=== PATIENT | female | born 1945 | race Caucasian/White ===

== ENCOUNTER → 2020-11-18 09:25 | Outpatient (CLI) | payer OTHER, SELFPAY ==
[2020-11-18 11:39] LABS: COVID19 -Nasal RAPID Negative (Negative)
== END ==
PROVIDERS: Visit Provider Physician Assistant
DX: Z20.822 Contact with and (suspected) exposure to COVID-19 (principal)
CPT/HCPCS: 87635; C9803

== ENCOUNTER 2020-11-20 09:13 | Day surgery (SDC) | payer OTHER, SELFPAY ==
[2020-11-20] VITALS (19 sets, daily range): BP systolic 111–159; BP diastolic 42–93; PULSE 61–72; RESP 8–18; TEMP 36.2–36.9; O2SAT 88–100; BMI 23.8
--- NOTE | 2020-11-20 | DI.RAD.S_ITS ---
PROCEDURE: XR KNEE RT 1TO2V INDICATIONS: TOTAL RIGHT KNEE TECHNIQUE: 2 view(s) of the knee acquired. COMPARISON: None. FINDINGS: Bones: Patient is status post knee joint arthroplasty. Hardware components are in expected positions. Visualized bony structures are intact. Soft tissues: Overlying postoperative changes are noted. IMPRESSION: Right total knee arthroplasty. Dictated by: Marek Valenzuela M.D. on 11/20/2020 at 15:34 Approved by: Marek Valenzuela M.D. on 11/20/2020 at 15:34
[2020-11-20] MEDS: ACETAMINOPHEN 325 MG TABLET 975 MG PO (09:54)
[2020-11-20] MEDS: CELECOXIB 200 MG CAPSULE PO (09:54)
[2020-11-20] MEDS: LACTATED RINGERS 1,000 ML 42 ML IV ×2 (09:54→13:25)
[2020-11-20] MEDS: PREGABALIN 75 MG CAPSULE PO (09:54)
--- NOTE | 2020-11-20 10:57 | PM.PREOP ---
Pre-operative Note COVID-19 COVID-19 status: Negative Result date/Date tested (Pos, Neg/Pending): 11/18/20 Interval Note History & Physical reviewed/Exam performed by Physician: Yes Changes to H&P: No H&P completed within 30 days and has changed as indicated here:: Plan for R TKA
[2020-11-20] MEDS: CEFAZOLIN 2 GM/100 ML FROZ.PIGGY IV ×2 (11:51→20:15)
[2020-11-20] MEDS: TRANEXAMIC ACID 1,000 MG VIAL 1000 MG INJ ×2 (12:10→13:29)
--- NOTE | 2020-11-20 12:24 | SUR.OPER ---
Supine on padded OR bed. Pillow under head, arms secured on padded armboards <90 degree abduction. Safety belt across torso. Non-operative leg secured with tape over blanket over lower leg. Operative leg secured on bar positioner. Foam padded brace at thigh of operative leg.
[2020-11-20] MEDS: ROPIVACAINE 0.5% PF 5 MG/ML 20ML VIAL 60 ML INJ (12:33)
[2020-11-20] MEDS: KETOROLAC 30 MG/ML VIAL IV (12:34)
[2020-11-20] MEDS: MORPHINE 4 MG/ML INJ INJ (12:34)
[2020-11-20] MEDS: SODIUM CHLORIDE IRRIG SOLUTION 250 ML, POVIDONE-IODINE SPONGE STICKS 1 APPLIC IRR (12:35)
--- NOTE | 2020-11-20 13:39 | PM.OP.1 ---
Operative Date/Time/Diagnoses Date of procedure: 11/20/20 Time of procedure: 13:39 Pre-op diagnosis: right knee OA Post-op diagnosis: same Procedure & Clinicians Procedure: Right total knee arthroplasty Same procedure as scheduled: Yes Indications: Right knee osteoarthritis resistant to further conservative measures Surgeon: Xu Castro Freight Manager: Marek Arrington Anesthesia Type: General and Spinal Operative Notes Findings: Right knee osteoarthritis with osteoarthritic changes seen in the medial femoral and patellofemoral compartments. Patellofemoral compartment was most severe with [id number] eburnation. Patella is too thin to resurface. Closure Type: primary Prosthetic devices, grafts, tissues, transplants, or devices: Garcia and nephew Journey 2 size 6 right CR femur Journey tibial base plate size 5 right Size 5-6 right 9 mm journey 2 polyethylene Estimated Blood Loss (mL): 200 Tourniquet time (min): 49 Procedure in detail: Patient was met in the preoperative holding area. Informed consent had been signed in clinic but was also reviewed the preoperative holding area and all questions were answered. The surgical site was marked by . Patient was then brought back in the operating room where she received a spinal anesthetic. She then placed supine on the operating room table. A nonsterile tourniquet was placed on the right thigh the right lower extremity was prepped and draped in normal sterile fashion. Surgical time-out performed verifying the site and side of surgery as well as the name of the patient. The the right lower extremity was exsanguinated using an Esmarch and the tourniquet was inflated to 250 mm of mercury. A longitudinal incision over the right knee was made in the skin using 10. Blade. Medial and lateral flaps were then elevated in the medial parapatellar arthrotomy was marked out and in medial parapatellar arthrotomy was performed the new 10. Blade. A medial peel was then performed as well as removal of the Hoffa's fat pad and removed with the lateral meniscus. ACL was then removed at this point and Serena's line was then marked. The entry site for the drill was marked 1 cm proximal to the PCL footprint as well as at the ACL footprint for the tibia. The drill was then used into the femoral canal and the tibial canals respectively. The intramedullary guide for the femoral cutting jig was then placed for a right-sided distal femoral cut we initially made a neutral cut however this was not a large enough cut and 2 more mm were taken. Intramedullary veronica was then placed inside the tibia the cutting jig was then placed and provisionally pinned into place. A drop veronica was then used to verify the varus valgus alignment of the cutting block and a 3rd pin was then placed to hold this in place. Initial cut again was found to be to conservative and 4 more mm of tibia were then cut. The medial meniscus was then removed. The knee was then brought into full extension and a 9 mm extension block was placed with the knee in full extension. The pins were then removed. The knee was brought into flexion and the gap maintenance equipment operator was used to el femoral rotation this was compared to Whitesides line. A femoral Sizer was then used and sized the femur to a size 6. External rotation of the component is about 5?. The 5 in 1 distal femoral cutting block was then placed and pinned into place. The cuts were then made. The cutting jig was removed and a trial 6. Femur was placed and excess osteophytes medially and laterally were removed. A size 5 tibial base plate with a 9 mm CR polyethylene was then placed in the knee was trialed knee was stable to varus valgus stress at full extension through mid flexion flexion range of motion with excellent range of motion. This point we turned our attention to the patella. The patella at its thickest point was measured at 17 mm thick as Sebastián point approximately 8 mm thick the portion of the patella the constituted 17 mm thickness was a very small area and the majority of the patella was quite a bit thinner than this. I did not resurface the patella at the think that she would be at significant risk for extensor mechanism disruption if this would be resurfaced due to the thickness of the patella. Electrocautery was used to for the soft tissue about the patella. The patella want to sublux a little bit laterally although was still tracking within the trochlea through range of motion a lateral release was then performed. This improved tracking. The trial components were then removed after marking tibial rotation using a floating technique. Tibial tray was then placed and reamed and punched. Local anesthetic was infiltrated into the posterior aspect of the knee as well as the periarticular soft tissues. Pulse lavage was used to clean the cut surface of the of the bone and then suction was used to dry the surfaces. Cement was then prepped and cement was then finger packed on the cut surface of the tibia as well as into the keel. It was placed on the undersurface of the tibial tray this tibial tray was then malleted into place and excess cement was removed. Cement was then finger packed on the cut surface of the femur with exception of the posterior condylar cut. Cement was placed on the feet of the femoral component and this was then malleted into place as well and excess cement was removed. A size 9 CR trial polyethylene was then placed in the knee was brought into full extension and the ankle was held in internal rotation while the cement fully cured. Betadine solution was then placed in the wound allowed to sit for several minutes prior to being pulse lavage away with copious normal saline. The tourniquet was let down at 49 minutes set time. Hemostasis was achieved using electrocautery. Once the cement was fully cured the knee was brought through range of motion again and a size 5-6 right deep dish polyethylene was selected. Trial was removed and the posterior aspect of the knee was lavaged again looking for any bony fragments of which none were found. The polyethylene was then snapped into the tibial tray make sure that the medial and lateral tabs were well seated. The medial parapatellar arthrotomy was then closed with Vicryl in interrupted fashion followed by a running Quill suture. The subcutaneous layer was then closed with 2 Vicryl interrupted fashion followed by 3-0 Stratafix in the subcuticular layer followed by Dermabond and Aquacel dressing. Complications: none Post-operative Condition: stable Disposition: PACU Plan for aftercare: 24 hours post-op abx, WBAT RLE, ASA 81mg BID for 6 weeks for DVT prophyalxis
[2020-11-20] MEDS: OXYCODONE IR 5 MG TABLET PO ×3 (14:25→18:03)
[2020-11-20] MEDS: ONDANSETRON 4 MG/2 ML INJ IV (14:25)
[2020-11-20] MEDS: ACETAMINOPHEN 325 MG TABLET 650 MG PO ×2 (16:39→21:37)
[2020-11-20] MEDS: LACTATED RINGERS 1,000 ML 100 ML IV (16:40)
--- NOTE | 2020-11-20 17:45 | PC.NURSE ---
Addendum entered by Josee Au R.N. 11/20/20 22:50: Denies feeling urge to void. Bladder scanned for > 600 cc's. Assisted pt to commode to attempt void and pt incontinent of urine with movement. Incontinent and continent of urine. Brief placed and linen changed on bed. Pt able to transfer from commode to bed without any c/o dizziness or lightheadedness. BL calf scd's replaced upon return to bed. Oxygen replaced for sleep. Miralax per request for bowel function. No change in neurovascular status this evening shift. Addendum entered by Josee Au R.N. 11/20/20 19:08: Soundly sleeping in bed. 02 2L nc sats 100%. Pt has been instructed in I.S. prior to sleep and provides return demonstration with good technique. When pt lying on back, noted to desaturate with sleep with mouth breathing to 88% while on 2L oxygen per NC. Original Note: Pt mostly sleeping in bed @ beginning of shift. Noted saturation level with sleep decreases to upper 70's. Pt rouses easily to voice and oxygen @ 2L per nc placed and oxygen level increases to 94%. Pt fully awake for evening meal. Denies nausea. Rates right knee pain 5/10 and was given tylenol and encouraged to alert staff if needing/desiring stronger analgesia. Pt verbalizes understanding and agreement. Ice to right knee. Dr. Castro in to see patient. BL calf scd's in place. Pt admits to full sensation to BL LE's. Milo wrap to right knee dry and intact and RLE supported on pillow x 1. Oriented to call light.
[2020-11-20] MEDS: DOCUSATE 100 MG CAPSULE PO (21:37)
[2020-11-20] MEDS: ASPIRIN EC 81 MG TABLET PO (21:37)
[2020-11-20] MEDS: polyethylene glycoL 3350 17 GM POWD.PACK PO (22:11)
[2020-11-21 00:20] VITALS: BP 141/78; PULSE 74; RESP 16; TEMP 36.8; O2SAT 99
[2020-11-21] MEDS: OXYCODONE IR 5 MG TABLET PO ×3 (02:54→08:45)
[2020-11-21] MEDS: LACTATED RINGERS 1,000 ML 100 ML IV (03:00)
[2020-11-21] MEDS: CEFAZOLIN 2 GM/100 ML FROZ.PIGGY IV (03:27)
[2020-11-21 04:56] LABS: Hemoglobin 11.1 g/dL (12.0-16.0)
[2020-11-21 05:00] VITALS: BP 143/77; PULSE 74; RESP 16; TEMP 36.6; O2SAT 98
[2020-11-21] MEDS: SODIUM CHLORIDE 0.9% FLUSH 10 ML IV ×2 (06:59→08:59)
--- NOTE | 2020-11-21 07:34 | P.PN_ITS ---
Subjective Subjective Date Patient Seen: 11/21/20 Time Patient Seen: 07:34 Interval history: Patient is in bed resting comfortably. She states that her pain is well managed with her current pain management regimen. The patient notes that she has had mild discomfort getting out of bed to use the restroom but explains that the pain is alleviated with rest. Patient is voiding well and denies nausea, chest pain, shortness of breath, chills, or pain below the knees bilaterally. She notes that she has yet to work with PT this morning. The patient notes that she has all of her prescribed medications ready at home. A follow up appointment at [facility] is set for two weeks from the date of surgery 11/20/20. Exam Vital Signs (past 8 hours): - 11/21/20 00:20 11/21/20 05:00 Temperature 98.2 F 97.8 F Pulse Rate 74 74 Respiratory Rate 16 16 Blood Pressure 141/78 H 143/77 H Pulse Oximetry 99 98 Oxygen Delivery Method Nasal Cannula Oxygen Flow Rate 0 Narrative Exam Narrative: Patient is resting comfortably in bed and is in no acute distress. VSS. Patient has sensation throughout the distal bilateral lower extremities with a capillary refill of < 2 seconds. Ankle dorsifelxion, plantar flexion, inversion, and eversion are performed without discomfort. Patient lifts the bilateral lower extremities from the bed with mild discomfort. Homans sign negative. No swelling, erythema, or discharge noted from the incision or bandage on the right LE. Const General: cooperative, healthy appearing, comfortable and well developed Orientation: alert, awake and oriented x3 HENMT Head: normal to inspection Resp Effort & Inspection: normal respiratory effort and able to speak in complete sentences Extrem General: normal exam except as noted Objective Labs Result Diagrams: 11/21/20 04:45 Labs: Laboratory Results - last 24 hr 11/21/20 04:45 Hgb 11.1 L Hct 33.0 L PFSH Medical History Arthritis Cancer of skin DJD (degenerative joint disease) Fracture Knee pain Primary osteoarthritis of right knee Social History household members: spouse Smoking Status: Former smoker alcohol intake: current Assessment & Plan Post-op Postoperative Procedures: Procedures Operation Date: 11/20/20 10:45 Actual Procedures Side Surgeon p Total Knee Arthroplasty Right Xu Castro MD Postoperative day: 1 Postoperative status: doing well Postoperative status narrative: Patient is doing well and awaiting work with PT. She notes that she has 8 total stairs in her home and would feel most comfortable ascending and descending stairs prior to discharge. Postoperative plan narrative: Patient is scheduled to attend PT at the [facility] facility. A two week post-op follow up is set at [facility]. The patient is instructed to not saturate or remove the bandage from the right LE and is to contact the office if the bandage is removed or soiled before follow-up. The patient has her prescribed medications at home and is aware that she will need to take Aspirin 81mg BID for two weeks, Tylenol, Ibuprofen, and Ox ycodone PRN. The patient is to be weight bearing as tolerated. Patient has yet to work with PT, but is clear for discharge after a successful session with PT. Quality VTE Deep Vein Thrombosis/Pulmonary Embolism Present on Admission: No
[2020-11-21] MEDS: DOCUSATE 100 MG CAPSULE PO (08:11)
[2020-11-21] MEDS: ACETAMINOPHEN 325 MG TABLET 650 MG PO ×2 (08:12→14:35)
[2020-11-21] MEDS: ASPIRIN EC 81 MG TABLET PO (08:12)
--- NOTE | 2020-11-21 09:53 | PT.IIE ---
Current Diagnoses Unilateral primary osteoarthritis, right knee (11/20/20) Surgery Performed Operation Date: 11/20/20 10:45 Actual Procedures p Total Knee Arthroplasty(Right) - Xu Castro MD Medical History (Last Reviewed 11/21/20 @ 12:10 by Sagar Ram PA-C) Arthritis Cancer of skin DJD (degenerative joint disease) Fracture Knee pain Primary osteoarthritis of right knee Physical Therapy Inpatient Evaluation/Re-Eval M1 PT/OT-IP Prior Functional Status Start: 11/21/20 12:00 Freq: NEEDED Status: Active Protocol: Document 11/21/20 09:53 AB (Rec: 11/21/20 12:13 AB [id number]) Medical Review Prior Functional Status Medical History Reviewed Yes Communication able to make needs known Mobility and Gait pt stated that she is independent with all mobilities and ambulation without AD Social History Household Members spouse Living Arrangements House Number of Floors (Floors) 3 or More Floors Number of Stairs To Enter/Railing? pt will stay on main level of the house has 8 steps with L rail descending to enter the house Home Environment High Toilet,Walk in Shower, Built-In Shower Seat Home Equipment Front Wheel Walker,Four Wheel Walker,Hand Held Shower,Grab Bars In Shower Employment Status Retired M2 PT-IP Current Condition Start: 11/21/20 12:00 Freq: NEEDED Status: Active Protocol: Document 11/21/20 09:53 AB (Rec: 11/21/20 12:13 AB [id number]) Physical Therapy Current Condition Current Condition Evaluation Date 11/21/20 Treatment Diagnosis s/p R TKA; difficulty in walking Onset Date 11/20/20 Weight Bearing Status Weight Bearing Status Weight Bear as Tolerated Allowed Weight Bearing Amount (enter % RLE WBAT or #) (%) M3 PT-IP Subjective Start: 11/21/20 12:00 Freq: NEEDED Status: Active Protocol: Document 11/21/20 09:53 AB (Rec: 11/21/20 12:13 AB [id number]) Subjective Physical Therapy Visit Type Type Initial Evaluation Visit Start Time 09:53 Visit Stop Time 11:25 Total Visit Minutes 72 Number of REVENUE DIRECTOR Visits 0 Physical Therapy Visit Comments Patient Comments pt is agreeable to do PT Therapy Pain Assessment Pain When Pain Assessed At Rest Pain Present Pain Present Pain Reported Location Right Knee Intensity 1 Scale Used increases to 8/10 with mobility Pain Management Techniques Apply Cold,Distraction, Modification of Treatment,Re- positioning,Timing of Activity with Medications M4 PT-IP Mobility and Gait Start: 11/21/20 12:00 Freq: NEEDED Status: Active Protocol: Document 11/21/20 09:53 AB (Rec: 11/21/20 12:13 AB [id number]) PT-Bed Mobility Assessment Supine to Sit Supine to Sit Standby Assistance Sit to Supine Sit to Supine Standby Assistance PT-Transfer Assessment Sit to and From Stand Sit to and from Stand Standby Assistance,Contact Guard Assistance,1 Person Assistance Equipment Transfer Assistive Device Front Wheeled Walker Orthotic/Prosthetic Devices or Brace: No Transfers Transfer Destination Chair,Toilet Transfer Technique ambulated using FWW Transfer Ability Level of Assist Standby Assistance,Contact Guard Assistance,1 Person Assistance,Use of Upper Extremities Comments Mobility Comments pt completed supine to sit X 2 sets SBA and cues for techniques. pt was able to sit on EOB SBA. requested to use the toilet. completed sit to stand CGA and cues. ambulated to the toilet using FWW CGA. completed sit to stand from the toilet using grab bar SBA. ambulated to the chair using FWW SBA to CGA . pt agreed to do stairs. completed sit to stand from the chair SBA and ambulated using FWW ~ 100 ft SBA to CGA. educated pt on stair climbing. completed up/down steps holding on R rail with B hands requiring min A and cues. pt c/o 8/10 pain and nausea. pt assisted back to her room. ambulated from w/c to chair SBA using FWW. positioned on chair. call light and table placed within reach. setup caregiver training and spouse will be coming ~ 1230 pm today for training. informed nurse and PA regarding pt's pain and mobiltiy. Gait Assessment Gait Gait Assistance Required: Standby Assistance,Contact Guard Assist Distance (Feet) 100 Able to Maintain Weight Bearing Status Yes During Gait Assistive Devices Assistive Device Gait Belt,Front Wheeled Walker Orthotic/Prosthetic Devices or Brace: No Gait Deviations General Gait Pattern Antalgic,Decreased Stride Length,Decreased Feet Clearance,Step-to Gait Factors Limiting Gait Function Factors Limiting Gait Function Decreased Activity Tolerance, Decreased Strength,Limited Range of Motion,Pain,Poor Balance,Poor Safety Awareness Comments Gait Comments pls refer to mobility section for details Stair Climbing Assessment Evaluation Level of Assist On Stairs Minimal Assistance Devices Stair Climbing Assistive Devices Right Railing Technique/Endurance Stair Climbing Direction Ascend and Descend Stair Climbing Technique Step to Step Number of Steps Climbed 3 Query Text: Stair Climbing Set # Repetitions (reps) 1 Comments Stair Climbing Comments pls refer to mobility section for details PT-Balance Assessment Sitting Balance and Reactions Static Sitting Balance Ability Good Dynamic Sitting Balance Ability Good Standing Balance and Reactions Static Standing Balance Ability Fair Dynamic Standing Balance Ability Fair Device Used FWW M5 PT-IP Objective Assessments Start: 11/21/20 12:00 Freq: NEEDED Status: Active Protocol: Document 11/21/20 09:53 AB (Rec: 11/21/20 12:13 AB [id number]) Orientation Orientation/Cognition Level of Alertness Alert Orientation Name,Place,Situation Language Function Ability No Deficits Noted Safety Awareness Understands Safety Issues Memory Description No Deficits Noted Gross Range of Motion Lower Extremity ROM Assessment Right Impaired Impairments R knee flexion PROM: ~ 70 deg; extension with 15 deg lacking to neutral Strength Lower Extremity Strength Assessment Right Impaired Hip 4-/5 Knee 3+/5 Coordination Assessment Gross Coordination Gross Coordination WNL Muscle Tone Muscle Tone WNL Yes M6 PT-IP Treatment Start: 11/21/20 12:00 Freq: NEEDED Status: Active Protocol: Document 11/21/20 09:53 AB (Rec: 11/21/20 12:13 AB [id number]) Physical Therapy Treatment Exercises Exercises Ankle Pumps,Quad Sets,Heel Slides Education Education Provided Precautions,Weight Bearing Status,Post-Op Packet,Safety Other Treatments Other Treatment Performed completed heel slides, quads sets and ankle pumps reviewed HEP M7 PT-IP Assessment and Plan Start: 11/21/20 12:00 Freq: NEEDED Status: Active Protocol: Document 11/21/20 09:53 AB (Rec: 11/21/20 12:13 AB [email or web address]) PT Summary Assessment and Plan Potential Rehabilitation Potential Good Status of Condition at Evaluation Stable Summary Impairments Pain,ROM,Strength,Balance, Coordination,Bed Mobility, Transfers,Gait,Activity Tolerance Assessment Summary pt requiring SBA to CGA with ambulation using FWW and min A with stair climbing. Spouse will be coming in this afternoon ~ 1230 pm for caregiver training. will continue to assess progress. pt plans to go home after caregiver training. Goals Bed Mobility Goal Independent Transfer Goal Independent,Front Wheeled Walker Gait Goal Independent,Front Wheel Walker Gait Distance 150 Other Goals up/down 8 steps R rail ascending SBA Days to Meet Goals 5 Frequency of Treatment Frequency Of Treatment Twice a Day Treatment Plan Physical Therapy Treatment Plan Bed Mobility Training,Transfer Training,Gait Training, Therapeutic Exercise,Balance Retraining,Post Op Education, Discharge Planning,Hot or Cold Pack,Neuromuscular Re-ed, Coordination Retraining,Manual Therapy Precautions Other Precautions RLE WBAT Recommendations To Nursing Amount of Assist Needed 1 Person Assist Discharge Recommendations PT Discharge Recommendations Home with Assistance, Outpatient PT Transportation Needs at Discharge Private Vehicle
[2020-11-21 10:38] VITALS: BP 127/72; PULSE 69; RESP 19; TEMP 36.7; O2SAT 96
--- NOTE | 2020-11-21 10:55 | PM.PNPO.1 ---
Subjective Subjective Date Patient Seen: 11/21/20 Time Patient Seen: 11:01 Interval history: Patient states she is doing well. Pain is managed with her current pain management regimen. Patient states she is feeling fine ambulating well with her walker during PT. She notes that she has yet to work on ascending and descending stairs with PT. Exam Vital Signs (past 8 hours): - 11/21/20 05:00 Temperature 97.8 F Pulse Rate 74 Respiratory Rate 16 Blood Pressure 143/77 H Pulse Oximetry 98 Oxygen Delivery Method Nasal Cannula Oxygen Flow Rate 0 Narrative Exam Narrative: Patient is comfortable and ambulating well with assistance of walker and PT. She is in no acute distress. Const General: cooperative, healthy appearing and comfortable Resp Effort & Inspection: normal respiratory effort and able to speak in complete sentences Objective Labs Result Diagrams: 11/21/20 04:45 Labs: Laboratory Results - last 24 hr 11/21/20 04:45 Hgb 11.1 L Hct 33.0 L PFSH Medical History Arthritis Cancer of skin DJD (degenerative joint disease) Fracture Knee pain Primary osteoarthritis of right knee Social History household members: spouse Smoking Status: Former smoker alcohol intake: current Assessment & Plan Post-op Postoperative Procedures: Procedures Operation Date: 11/20/20 10:45 Actual Procedures Side Surgeon p Total Knee Arthroplasty Right Xu Castro MD Postoperative day: 1 Postoperative status: doing well Postoperative status narrative: Patient comfortable working with PT. Postoperative plan narrative: Refer to previous note for postoperative plan. If patient successfully works with PT she feels comfortable being discharged today. Quality VTE Deep Vein Thrombosis/Pulmonary Embolism Present on Admission: No
--- NOTE | 2020-11-21 11:13 | CM.DANOTE ---
DCP: Case received, EMR reviewed and met with patient. Introduced self and role. Was able to obtain information from patient regarding her baseline activity status prior to surgery, as well as her current living situation. DCP assessment completed with information currently available. Patient is a 75 year old female who admitted yesterday morning to the care of the orthopedic team. PCP: Dr. Diego. Payer: confirmed: [employer]. Patient came to the hospital via private vehicle for a surgical procedure. She had right total knee arthroplasty. Patient had had history of osteoarthritis of her right knee. Met with patient in her room. She is alert and oriented, pleasant. She resides in [facility] with her spouse, Rasta. She is independent at her baseline. Confirmed that her will be able to assist her when she goes home. P: DCP to continue to follow. Patient should be able to go home when she is medically stable and cleared by P.T. Kanwal Macdonald RN/Roller Skate [employer]er
--- NOTE | 2020-11-21 11:51 | P.DS_ITS ---
History of Present Illness History of Present Illness Date Patient Seen: 11/21/20 Time Patient Seen: 11:52 Chief complaint: OPB Narrative: Patient admitted to the hospital following right TKA. Patient has a history of right knee OA. Following the surgery the patient worked with PT and was able to ambulate with the assistance of a walker and worked on ascending and descending stairs. The patient has had her pain managed well with her pain management regimen, and she has her prescriptions at home for Aspirin 81mg BID, Tylenol, Ibuprofen, and Oxycodone. At this time she denies chills, shortness of breath, or chest pain. The patient has been instructed to follow-up in two weeks at the clinic and continue PT at [facility]. Discharge Providers Provider Discharge Date: 11/21/20 Primary care physician: Carlene Diego MD Consults: 11/20/20 07:45 Consult to Anesthesiology Routine Comment: Consulting Provider: Anesthesiologist Reason for consultation: Regional block for post operative pain control 11/20/20 16:10 Consult to Discharge Planning Routine Comment: Consult to Physical Therapy Evaluate & Treat Comment: Physician Instructions: postop TKA protocol Consult to Respiratory Therapy Evaluate & Treat Comment: Physician Instructions: Evaluate and treat 11/20/20 16:50 Consult to Pastoral Services Routine Comment: Is Faith Discharge provider: Sagar Ram PA-C Summary Hospital Course Discharge Diagnosis: Right knee osteoarthritis Status post right TKA Hospital Course: Same as documented in HPI Exam Vital Signs (past 8 hours): - 11/21/20 05:00 11/21/20 10:38 Temperature 97.8 F 98.0 F Pulse Rate 74 69 Respiratory Rate 16 19 Blood Pressure 143/77 H 127/72 Pulse Oximetry 98 96 Oxygen Delivery Method Nasal Cannula Oxygen Flow Rate 0 Narrative Exam Narrative: Patient resting comfortably in chair in her room. Right LE is free of swelling, ecchymosis, or erythema. Patient is ambulating in the room with the assistance of her walker. Sensation is intact throughout the bilateral lower extremities, VSS, negative Homans sign. Const General: cooperative, healthy appearing and comfortable Resp Effort & Inspection: normal respiratory effort and able to speak in complete sentences Extrem General: normal exam except as noted Objective Labs Result Diagrams: 11/21/20 04:45 Labs: Laboratory Results - last 24 hr 11/21/20 04:45 Hgb 11.1 L Hct 33.0 L PFSH Medical History Arthritis Cancer of skin DJD (degenerative joint disease) Fracture Knee pain Primary osteoarthritis of right knee Social History household members: spouse Smoking Status: Former smoker alcohol intake: current Discharge Assessment & Plan Assessment and Plan Assessment: Patient is clear for discharge. Pain is managed well and the patient has her prescribed medications at home. Patient is to contact the clinic with any questions or concerns. Plan of Treatment: Patient to be weight bearing as tolerated. She is to follow-up at the clinic in two weeks for her first post-op appointment. The patient is to continue PT outside of the hospital at [facility]. The bandage covering the surgical incision is to remain intact. The bandage should not be removed or saturated. If the bandage is removed or damaged prior to the first post-op visit the patient is instructed to contact the clinic. Patient is to continue Aspirin 81mg BID for 6 weeks for DVT prophylaxis. Tylenol, Ibuprofen, and Oxycodone have been prescribed for pain management and the patient states she currently has those prescriptions at home. The patient is to contact the clinic with any further concerns or qestions. Discharge Plan Discharge Plan Patient Disposition: Home Provider Discharge Comment: Patient cleared for discharge pending PT approval. Patient is to follow-up at the clinic in two weeks. PT is to be performed outside of the hospital at [facility] Discharge orders & Medications Discharge Orders: Discharge (Order); Ordered 11/21/20 Ordered By: Sagar Ram Prescriptions: New aspirin 81 mg Tablet,Delayed Release (Dr/Ec) 81 mg PO BID 42 Days Qty: 84 RF: 0 acetaminophen 325 mg Tablet 650 mg PO TID Qty: 90 RF: 0 Continued diclofenac sodium 25 mg Tablet,Delayed Release (Dr/Ec) 25 mg PO TID RF: 0 Estring 2 mg (7.5 mcg /24 hour) Ring 1 vag ring VAGINAL [id number] RF: 0 oxycodone 5 mg tablet 5 mg PO Q4-6H PRN (Reason: Pain) RF: 0 Follow up/Referrals: Carlene Diego MD [Primary Care Provider] - Skin/Wound/Dressing Care Report to your healthcare provider any signs of infection, such as:: chills, fever, increased pain, unusual drainage and unusual redness Other wound treatment: Keep bandage on until follow-up appointment. Do not saturate bandage. If bandage is soiled, removed, or damaged contact the clinic Visit Report/Discharge Packet Instructions: DI for Knee Replacement Stand Alone Forms: Surgery Discharge Discharge Data Primary Care Provider: Carlene Diego Attending Provider: Xu Castro VTE Deep Vein Thrombosis/Pulmonary Embolism Present on Admission: No
[2020-11-21] MEDS: OXYCODONE IR 10 MG TABLET PO ×2 (11:54→14:45)
--- NOTE | 2020-11-21 12:40 | PT.IPTN ---
Current Diagnoses Unilateral primary osteoarthritis, right knee (11/20/20) Surgery Performed Operation Date: 11/20/20 10:45 Actual Procedures p Total Knee Arthroplasty(Right) - Xu Castro MD Physical Therapy Treatment Note M2 PT-IP Current Condition Start: 11/21/20 12:00 Freq: NEEDED Status: Active Protocol: Document 11/21/20 09:53 AB (Rec: 11/21/20 12:13 AB [email or web address]) Physical Therapy Current Condition Current Condition Evaluation Date 11/21/20 Treatment Diagnosis s/p R TKA; difficulty in walking Onset Date 11/20/20 Weight Bearing Status Weight Bearing Status Weight Bear as Tolerated Allowed Weight Bearing Amount (enter % RLE WBAT or #) (%) M3 PT-IP Subjective Start: 11/21/20 12:00 Freq: NEEDED Status: Active Protocol: Document 11/21/20 12:40 AB (Rec: 11/21/20 14:12 AB [email or web address]) Subjective Physical Therapy Visit Type Type Treatment Note Visit Start Time 12:40 Visit Stop Time 13:20 Total Visit Minutes 40 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 Physical Therapy Visit Comments Patient Comments pt is agreeable to do PT Therapy Pain Assessment Pain When Pain Assessed At Rest Pain Present Pain Present Pain Reported Location Right Knee Scale Used pain scale not stated Pain Management Techniques Apply Cold,Distraction, Modification of Treatment,Re- positioning,Timing of Activity with Medications M4 PT-IP Mobility and Gait Start: 11/21/20 12:00 Freq: NEEDED Status: Active Protocol: Document 11/21/20 12:40 AB (Rec: 11/21/20 14:12 AB [id number]) PT-Bed Mobility Assessment Supine to Sit Supine to Sit Standby Assistance Sit to Supine Sit to Supine Standby Assistance PT-Transfer Assessment Sit to and From Stand Sit to and from Stand Standby Assistance,Contact Guard Assistance,1 Person Assistance,Use of Upper Extremities Equipment Transfer Assistive Device Gait Belt,Front Wheeled Walker Orthotic/Prosthetic Devices or Brace: No Transfers Transfer Destination Bed Transfer Ability Level of Assist Standby Assistance,Contact Guard Assistance Comments Mobility Comments pt was just coming out from the toilet with spouse in room . pt ambulated using FWW to the sink SBA and was able to maintain standing balance SBA while completing handwashing. pt ambulated to the bed using FWW SBA. demonstrated sit<> supine on a high bed SBA. educated on techniques. caregiver training conducted. educated spouse on how to use safety belt and how to assist pt. spouse was able to assist pt with sit to stand and ambulated in the hallway using FWW 100 ft SBA to CGA. pt rested on w/c. educated spouse on how to assist pt with stair climbing. pt completed up/down steps holding on to R rail ascending with B hands and spouse assisting pt min A. spouse was able to assist pt safely. pt ambulated from w/c to bed using FWW SBA. SBA sit to supine. positioned in bed. call light and table within reach. pt and spouse without any concerns. informed nurse that pt is cleared to go home. Gait Assessment Gait Gait Assistance Required: Standby Assistance,Contact Guard Assist Distance (Feet) 100 Able to Maintain Weight Bearing Status Yes During Gait Assistive Devices Assistive Device Gait Belt,Front Wheeled Walker Orthotic/Prosthetic Devices or Brace: No Gait Deviations General Gait Pattern Antalgic,Decreased Stride Length,Decreased Feet Clearance Factors Limiting Gait Function Factors Limiting Gait Function Decreased Activity Tolerance, Decreased Strength,Limited Range of Motion,Pain,Poor Balance Stair Climbing Assessment Evaluation Level of Assist On Stairs Minimal Assistance Devices Stair Climbing Assistive Devices Right Railing Technique/Endurance Stair Climbing Direction Ascend and Descend Stair Climbing Technique Step to Step Number of Steps Climbed 3 Stair Climbing Set # Repetitions (reps) 1 M5 PT-IP Objective Assessments Start: 11/21/20 12:00 Freq: NEEDED Status: Active Protocol: Document 11/21/20 09:53 AB (Rec: 11/21/20 12:13 AB [email or web address]) Orientation Orientation/Cognition Level of Alertness Alert Orientation Name,Place,Situation Language Function Ability No Deficits Noted Safety Awareness Understands Safety Issues Memory Description No Deficits Noted Gross Range of Motion Lower Extremity ROM Assessment Right Impaired Impairments R knee flexion PROM: ~ 70 deg; extension with 15 deg lacking to neutral Strength Lower Extremity Strength Assessment Right Impaired Hip 4-/5 Knee 3+/5 Coordination Assessment Gross Coordination Gross Coordination WNL Muscle Tone Muscle Tone WNL Yes M6 PT-IP Treatment Start: 11/21/20 12:00 Freq: NEEDED Status: Active Protocol: Document 11/21/20 12:40 AB (Rec: 11/21/20 14:12 AB [email or web address]) Physical Therapy Treatment Exercises Exercises Heel Slides Education Education Provided Safety Other Treatments Other Treatment Performed educated spouse on how to assist pt with heel slides M7 PT-IP Assessment and Plan Start: 11/21/20 12:00 Freq: NEEDED Status: Active Protocol: Document 11/21/20 12:40 AB (Rec: 11/21/20 14:12 AB [id number]) PT Summary Assessment and Plan Potential Rehabilitation Potential Good Summary Impairments Pain,ROM,Strength,Balance, Cognition,Bed Mobility, Transfers,Gait,Activity Tolerance Progress Towards Goals Progressing Toward Goals Assessment Summary caregiver training conducted and spouse was able to assist pt safely. pt plans to go home later today. pt stated that she is set up for outpt PT. pt may go home when medically stable. Goals Bed Mobility Goal Independent Transfer Goal Independent,Front Wheeled Walker Gait Goal Independent,Front Wheel Walker Gait Distance 150 Other Goals up/down 8 steps R rail ascending SBA Days to Meet Goals 5 Frequency of Treatment Frequency Of Treatment Twice a Day Treatment Plan Physical Therapy Treatment Plan Bed Mobility Training,Transfer Training,Gait Training, Therapeutic Exercise,Balance Retraining,Post Op Education, Discharge Planning,Hot or Cold Pack,Neuromuscular Re-ed, Coordination Retraining,Manual Therapy Precautions Other Precautions RLE WBAT Recommendations To Nursing Amount of Assist Needed 1 Person Assist Discharge Recommendations PT Discharge Recommendations Home with Assistance, Outpatient PT Transportation Needs at Discharge Private Vehicle
--- NOTE | 2020-11-21 14:36 | PC.NURSE ---
Pt A&Ox3. CMS+/ reports pain 2-4 /10 when not moving. medicate with prn oxycodone 5 mg this a.m. While working with PT reports pain level up to 8/10. PRN oxycodone 10mg given for afternoon therapy session with good effect for healthcare representative training witih . Dressing CDI no drainage or swelling. VSS, afebrile.
[2020-11-21 15:20] VITALS: BP 145/73; PULSE 80; RESP 18; TEMP 37.4; O2SAT 93
--- NOTE | 2020-11-21 16:22 | PC.NURSE ---
Patient with discharge to home and agreeable for discharge. Explained discharge instructions and education, copies also given to patient. Patient denies having in meds in our pharmacy or valuables in the safe. All belongings with patient, this RN transported patient via wheelchair to transportation.
== END 2020-11-21 16:24 | disposition home or self-care (01) ==
LOC: OR 09:22 → AC 09:24
PROVIDERS: PCP Family Medicine; Referring Provider Orthopaedic Surgery Adult Reconstructive Orthopaedic Surgery; Visit Provider Orthopaedic Surgery Adult Reconstructive Orthopaedic Surgery
PROC: 0SRC0JZ Replacement of Right Knee Joint with Synthetic Substitute, Open Approach (ICD-10-PCS; CPT 27447; principal; 2020-11-20 10:45)
DX: M17.11 Unilateral primary osteoarthritis, right knee (principal)
CPT/HCPCS: 27447; 36415; 73560; 85014; 85018; 97116; 97161; 97530; C1776; J0690; J1100; J1885; J2250; J2270; J2405; J2704; J3010